=== PATIENT | male | born 2000 | race Caucasian/White ===

== ENCOUNTER 2020-03-09 17:01 | Emergency (ER) | payer BC, SELFPAY ==
[2020-03-09 17:18] VITALS: BP 128/77; PULSE 69; RESP 20; TEMP 36.6; O2SAT 100
--- NOTE | 2020-03-09 17:32 | ED.EAR ---
HPI - Ear Problem General Chief complaint: Ear Stated complaint: ear pain Time Seen by Provider: 03/09/20 17:32 Source: patient and RN notes reviewed Mode of arrival: ambulatory Limitations: no limitations History of Present Illness HPI Narrative: This is a 19 years old male presented office for evaluation of bilateral ear pain since yesterday. Deny associated symptoms such as runny nose, sore throat, cough, or congestion. No treatment prior to arrival. Admits to recent swimming. Related Data Allergies Allergy/AdvReac Type Severity Reaction Status Date / Time amoxicillin Allergy Unknown Verified 02/07/17 07:57 cefdinir Allergy Unknown Verified 02/07/17 07:58 Sulfa (Sulfonamide Allergy Unknown Verified 02/07/17 07:58 Antibiotics) sulfamethizole Allergy Unknown Verified 11/15/15 12:19 trimethoprim Allergy Unknown Verified 11/15/15 12:19 Review of Systems Review of Systems: Narrative: CONSTITUTIONAL: Denies fever, chills ENT: Denies rhinorrhea, congestion, sore throat. Reports both otalgia. CARDIOVASCULAR: Denies chest pain, palpitation, edema. RESPIRATORY: Denies dyspnea, wheezing, cough GASTROINTESTINAL: Denies abdominal pain, nausea, vomiting, diarrhea. SKIN: Denies rash MUSCULOSKELETAL: Denies acute back pain NEUROLOGIC: Denies lightheaded All other systems reviewed are negative, except as documented in HPI. PMFSH Social History Social History (Reviewed 07/09/19 @ 15:24 by Yolanda Hung [facility]) Smoking status: Never smoker Alcohol intake: never Gender identity (if verbalized by the patient): Male Comments At time of signature, I agree with nursing past medical, surgical, social and family history. There is no relevant family history pertinent to the presenting complaint. Exam Narrative: Exam Narrative: GENERAL: This is a well-nourished, well-developed patient, in no apparent distress. EYES: Sclera clear/white. Vision is grossly intact. EARS: External ears normal, bilateral tragal tenderness, both auditory canals appears erythema and edematous, TMs normal without perforation. Hearing grossly intact. NOSE: External nose normal with no obvious nasal discharge, nares without redness, no rhinorrhea. THROAT: Mucous membranes moist, posterior pharynx clear. NECK: Neck supple, non-tender without lymphadenopathy, masses or thyromegaly. CARDIOVASCULAR: Regular rate and rhythm without murmurs, gallops, or rubs. RESPIRATORY: Clear to auscultation. Breath sounds equal bilaterally. No wheezes, rales, or rhonchi. GASTROINTESTINAL: Abdomen soft, non-tender, nondistended. Bowel sounds are active. No hepato-splenomegaly, or palpable masses. No guarding. SKIN: warm, intact with no suspicious lesions or rash, good texture and turgor. NEURO: awake, alert, and oriented to person, place and time. There were no obvious focal neurologic abnormalities. Steady gait [place] Coma Scale Eye Opening: Spontaneous 4 Mohinder Coma Scale Motor: Obeys Commands 6 [place] Coma Scale Verbal: Oriented 5 Course Vital Signs Vital signs: Vital Signs Temperature 97.8 F 03/09/20 17:18 Pulse Rate 69 03/09/20 17:18 Respiratory Rate 03/09/20 17:18 Blood Pressure 128/77 03/09/20 17:18 Pulse Oximetry 100 03/09/20 17:18 Temperature 97.8 F 03/09/20 17:18 Pulse Rate 69 03/09/20 17:18 Respiratory Rate 03/09/20 17:18 Blood Pressure 128/77 03/09/20 17:18 Pulse Oximetry 100 03/09/20 17:18 Medical Decision Making MDM Narrative Medical decision making narrative: Discharge instructions reviewed with patient, as well as provided in writing per nursing staff. The instructions also include specific and strict return/GO TO THE ER as well as f/u information. All questions have been answered, and the patient deny any further questions with discharge and discharge plan. Differential Diagnosis Differential Diagnosis: otitis media, otitis externa, foreign body, sinusitis Vital Signs Vital Signs: Vital S
== END 2020-03-09 17:40 | disposition home or self-care (01) ==
PROVIDERS: Emergency Provider Nurse Practitioner; PCP Family Medicine
DX: H60.393 Other infective otitis externa, bilateral (principal)
CPT/HCPCS: 99213; G0463

== ENCOUNTER 2024-09-18 14:03 | Outpatient (CLI) | payer BC, SELFPAY ==
--- OUTSIDE RECORDS SUMMARY | 2024-09-18 14:08 | XMS_ITS | Referral Summary ---
Author Organization [facility] Address [address] [place] [address] Care Team Providers Care Bottle Blowing Machine Tender Name Role Phone Kevin Ribeiro MD Primary Care Provider Source Comments [facility],non-owned Affiliates and Associated Physician Practices is amultiple site organization consisting of ambulatory clinics and hospital sitesin [place] and [place]. This disclosure is being madepursuant to the Care Everywhere program and may not contain all information available regarding this patient. Last updated 18.[facility] Allergies Active Allergy Reactions Criticality Noted Date Comments Amoxicillin Urticaria High 12/24/2014 Cefdinir Urticaria High 12/24/2014 Sulfa Drugs Nausea and/or Vomiting High 12/24/2014 Medications * Be aware that medications may not be up to date on this document. Alwaysverify current medications with the patient. Medication Sig Dispensed Refills Start Date End Date Status multivitamin daily (THERAGRAN) tablet Take 1 Tab by mouth daily with food Active loratadine (CLARITIN) 10 MG tablet Take 10 mg by mouth once daily as needed for Runny Nose or Allergies Active FLUOCINOLONE ACETONIDE SCALP 0.01 %Indications:Psor iasis 1 Applicator by Apply externally route every evening Apply to affected areas every other day 120 mL 12/07/2016 Active Cholecalciferol (VITAMIN D) 2000 UNITS capsule Take 2,000 Units by mouth once daily Active methotrexate 2.5 MG tabletIndications :Psoriasis Take 2 Tabs by mouth every 7 days 8 Tab 2 03/19/2017 Active ketoconazole (NIZORAL) 2 % shampoo Use on scalp up to three times per week, allow contact with skin for up to 3 minutes to best results. 120 mL 5 08/15/2017 Active mupirocin (BACTROBAN) 2 % ointment Apply to nares and skin folds twice daily for 5 days. 22 g 08/15/2017 Active calcipotriene-bet amethasone dip (TACLONEX) 0.005-0.064 % suspension Apply to affected area once daily 120 g 08/15/2017 Active ustekinumab (STELARA) 45 MG/0.5ML prefilled syringeIndication s:Psoriasis,Inver se psoriasis Inject 0.5 ml subcutaneously every 12 weeks 1 syringe 3 10/04/2017 Active Active Problems Patient Care Coordination No te Formatting of this note migh t be different from the original. Standing Orders [facility] MD [phone] ph [phone] fax; valid 06/22/16-12/20/16 06/27/2016 Pt needs GI followup as recommended by Dr. Hdez; Sawyer may also benefit from Rheumatology evaluation (1 yr hx lower back pain, pos JIN) Alec prior auth approved 09/18/16-01/16/17. [facility] to fill; . Pt successfully enrolled in [employer] Savings Program; eligible to pay just $5 per dose with up to $20,000 maximum program benefit per calender year. Problem Noted Date Diagnosed Date Subcutaneous nodules 03/16/2017 Overview (05/28/2017): R axilla onset 2015 I&D X 12 Oct 2016 I&D February 2017 excision (Diedriech), path consistent with rupt EIC ([id number], U 2nd opinion performed). Wound dehiscence on 03/12 and started on Keflex. 03/16/17 wound cleansed and dressed; new onset R inguinal, consider hidradinitis vs.adenopathy 05/28/17 healed with scar Elevated JIN, transaminases and bilirubin 2015 Overview (08/08/2017): 02/26/16 CG GI: not evidence of IBD 07/27/16 CG Rheum: no evidence of CTD/PsA or seronegative spondyloarthropathy Consider MTX with biologics Wt 03/28/16 75.9 kg (167 lb 5.3 oz) 12/27/15 74.3 kg (163 lb 12.8 oz) 09/27/15 76.3 kg (168 lb 3.4 oz) 07/16/15 75.2 kg (165 lb 12.6 oz) Component 08/07/17 04/04/16 03/20/16 03/20/16 01/31/16 12/27/15 09/27/15 08/09/15 Bili Total 2.0 (H) 1.6 (H) 1.6 (H) 1.9 (H) 0.7 1.2 1.0 Alk Phos 86 86 88 96 (L) 111 106 AST 53 (H) 25 25 59 (H) 24 27 29 ALT 37 35 35 87 (H) 19 23 32 Bili Direct 0.3 (H) Bili Indirect 1.3 (H) JIN 1:80 speckled 1.4 Component 01/31/16 12/27/15 12/26/14 Iron 67 76 Transferrin 215 TIBC 269 278 % Saturation 25 27 CRP <=0.50 mg/dL <0.1 0.70 (H) 0.18 ESR <2 18 (H) 2 Vitamin D, 25-OH 20.46 (L) FH possible Crohn's (Dad flare age 24 Rx prednisone, Asachol, 6MP <2 yr) Plantar wart 09/27/2015 Overview (03/17/2017): onset late 2014 09/27/15 cryo, followed by topicals 12/27/15 cryo #2, Rx 70% nicol acid 03/27/16 resolved 07/03/16 new plantar lesion x 2 mo; cryo 11/27/16 improved, cryo; cont OTC treatment at home 12/29/16 resolved Acne 01/14/2015 Overview (03/17/2017): 01/14/15 complicated by perioral dermatitis; Benzaclin added (QAM) 02/17/15 50% improved, not clear 05/17/15 controlled on doxy 100 mg daily only 07/16/15 clear off doxy, and topicals 12/27/15 few lesions, central face only, off topicals 03/27/16 few lesions, off topicals 09/29/16 few lesions, using otc face wash 12/29/16 well controlled with mild change Psoriasis with perianal muco sitis, on long-term systemic tx (MTX, then Stelara) 01/13/2015 Overview (08/15/2017): onset age 8, scalp and folds, Rx excessive amounts of clobetasol shampoo and solution, desonide cream to face and TAC cr to perianal area; complicated by mucositis 01/13/15 1 yr hx perianal involvement; screening Strep neg; complicated by perioral dermatitis; Rx Taclonex soln + Loprox shampoo; perianal Cx: neg Strep, neg Staph 02/17/15 improved S/P QOD Taclonex (mucositis resolved); perioral involvement more psoriasiform 05/17/15 worsening using Taclonex solution (scalp) + fluocinolone oil under occlusion, and Taclonex in zinc oxide to body; start MTX at 15 mg QW (0.2 mg/kg/wk) 07/16/15 improved, but using pantiliners for drainage, S/P 8 wk MTX; tolerating 15 mg/wk; cont. X 4 more doses, then plan decrease 1 tab/wk every mo 08/11/15 mom prefers to hold dose at 15 mg/wk 09/27/15 improved, not clear S/P 14 wk MTX; increase to 20 mg/wk (0.26 mg/kg/wk) 12/27/15 new involvement at axillae, continued perianal serous drainage, almost 5# wt loss S/P 20 mg/wk X 12 and minimal Taclonex soln (mixed with zinc oxide); MTX PG 33.6 03/27/16 c/o back pain; change to MTX 20 mg SQ/wk, cont topicals; submit Rx ustekinumab 05/09/16 [employer] denied ustekinumab (<18 yr); cont. to monitor labs and appeal for LFT abnormalities or failure to respond 07/03/16 stable with faint new plaques on upper arms; MTX PG 47, consider increase to 25 mg QW; consider biologic when pt turns 16 09/29/16 improved on upper arms; active in roxana-anal area; STOP MTX after the last 2 doses; Hep Panel; Plan to start Ustekinumab; continue topicals 11/10/16 MTX D/C (last Otrexup injection 22.5 mg) 11/15/16 1st inj Stelara, 45 mg administered in office 12/13/16 day 28 inj Stelara administered at home per pt (no injection rxn) 12/29/16 improved, not clear; add MTX 5 mg QW 03/16/17 skin improved, not clear S/P Stelara #3 + MTX Qwk; back pain resolved, cont. Stelara, cont. MTX 5mg QW; consider Q2 mo injections, increase to 90 mg/dose or further eval, e.g. bx prn failure to clear) 05/28/17 worsening (worst at scalp/perianal) S/P Stelara #3 + MTX 5mg/wk, min topicals; inc Stelara #4, attempt increase to q2mo + MTX 5mg/wk, Rx keto shampoo, perianal bacterial cx MSSA only 07/24/17 controlled, not clear; Stelara #5 (S/P 2 mo interval); consider consult with Dr. Suarez for review of biologic options No personal hx freq Strep; FH infreq Strep pharyngitis (Mom and brother) Social History Tobacco Use Types Packs/Day Years Used Date Smoking Tobacco: Never Smokeless Tobacco: Never Alcohol Use Standard Drinks/Week Comments No 0 (1 standard drink = 0.6 oz pur e alcohol) Sex and Gender Information Value Date Recorded Sex Assigned at Not on file Gender Identity Not on file Sexual Orientation Not on file Last Filed Vital Signs Vital Sign Reading Time Taken Comments Blood Pressure 98/68 08/24/2016 2:16 PM DAM WORKER Pulse 78 02/17/2015 11:45 AM CDT Temperature - - Respiratory Rate 18 02/17/2015 11:45 AM CDT Oxygen Saturation - - Inhaled Oxygen Concentration - - Weight 78.3 kg (172 lb 9.9 oz) 08/15/2017 2:02 P M DAM WORKER Height 179.9 cm (5' 10.83 ) 08/15/2017 2:[address] Body Mass Index 24.19 08/15/2017 2:02 PM DAM WORKER Plan of Treatment Not on file Procedures Procedure Name Priority Date/Time Associated Diagnosis Comments HEPATITIS PANEL Routine 09/30/2016 12:07 PM DAM WORKER Psoriasis with perianal mucositis treated with MTX from Last 3 Months or Most Recently Relevant to Health Maintenance Results * HEPATITIS PANEL (09/30/2016 12:07 PM DAM WORKER) Hepatitis A Virus Antibody Total NON-REACTI VE NON-REACT DEE [facility] Comment: Test Performed at: [facility] [id number] [place] [address] YOANA SALAZAR DO,MPH Hepatitis B Virus Surface Antibody NON-REACTI VE NON-REACT DEE [facility] Hepatitis B Virus Surface Antigen NON-REACTI VE NON-REACT DEE [facility] Hepatitis B Core Virus Antibody Total NON-REACTI VE NON-REACT DEE [facility] Hepatitis C Antibody NON-REACTI VE NON-REACT DEE [facility] Signal to Cut-Off 0.02 <1.00 [facility] Comment: REPORT COMMENT: FASTING:NO BLOOD SPECIMEN / Unknown 09/30/2016 12:07 PM DAM WORKER 09/30/2016 12:08 PM DAM WORKER Yoselin Edwards MD LAB - CHEMISTRY OR DERABLES [facility] [id number] [place] [phone] from Last 3 Months or Most Recently Relevant to Health Maintenance Care Teams Bottle Blowing Machine Tender Relationship Specialty Start Date End Date Kevin Ribeiro MD [address] [facility] [place] [address] PCP - General Family Medicine 12/03/14
--- OUTSIDE RECORDS SUMMARY | 2024-09-18 14:08 | XMS_ITS | Clinical Summary ---
Author Organization [facility] [employer] [facility] Address [address] [place] [address] Care Team Providers Care Electronic Scanner Operator Name Role Phone Kevin Ribeiro MD Primary Care Provider [phone] Source Comments [facility],non-owned Affiliates and Associated Physician Practices is amultiple site organization consisting of ambulatory clinics and hospital sitesin [place], [place], [place] and [place]. This disclosure is being madepursuant to the Care Everywhere program and may not contain all information available regarding this patient. Last updated 18.[facility] Allergies Active Allergy Reactions Criticality Noted Date [...] from the original. Standing Orders [facility] [place] [phone] ph [phone] fax; valid 06/22/16-12/20/16 06/27/2016 Pt needs GI followup as recommended by Dr. Hdez; [place] may also benefit from Rheumatology evaluation (1 yr hx lower back pain, pos JIN) Alec prior auth approved 09/18/16-01/16/17. [facility] to fill; . Pt successfully enrolled in [employer] Savings Program; eligible to pay just $5 per dose with up to $20,000 maximum program benefit per calender year. Problem Noted Date Diagnosed Date Subcutaneous nodules 03/16/2017 Overview (05/28/2017): R axilla onset 2015 I&D X 12 Oct 2016 I&D February 2017 excision (Diedriech), path consistent with rupt EIC ([id number], U 2nd opinion performed). Wound dehiscence on [...] FH infreq Strep pharyngitis (Mom and brother) Family History Medical History Relation Name Comments Eczema Father mole Psoriasis Father mole Cancer - Skin, Melanoma Paternal Grandfather Heart Disease Paternal Grandmother Relation Name Status Comments Brother vitilago Alive Father mole Alive Mother mole Alive Paternal Grandfather Paternal Grandmother Social History Tobacco Use Types Packs/Day Years [...] Comments Blood Pressure 98/68 08/24/2016 2:16 PM DEPARTMENT SALES MANAGER Pulse 78 02/17/2015 11:45 AM CDT Temperature - - Respiratory Rate 18 02/17/2015 11:45 AM CDT Oxygen Saturation - - Inhaled Oxygen Concentration - - Weight 78.3 kg (172 lb 9.9 oz) 08/15/2017 2:02 P M DEPARTMENT SALES MANAGER Height 179.9 cm (5' 10.83 ) 08/15/2017 2:02 PM Nicole FRITZ Body Mass Index 24.19 08/15/2017 2:02 PM DEPARTMENT SALES MANAGER Plan of Treatment Health Maintenance Due Date Last Done Comments HIV SCREENING 2013 HPV VACCINE (1 - Male 3-dose series) 2013 DTAP/TDAP/TD VACCINES (1 - Tdap) 2017 HEPATITIS B VACCINE (1 of 3 - 19+ 3-dose series) 2017 COVID-19 VACCINE (1 - 2023-2 5 season) 2024 INFLUENZA VACCINE (#1) 2024 DEPRESSION SCREENING 08/13/2024 ZOSTER VACCINE (1 of 2) 2048 HEPATITIS C SCREENING Completed 09/30/2016 HIB VACCINE Aged Out No longer eligi ble based on patient's age to complete this topic MENINGOCOCCAL (Group B) VACCINE Aged Out No longer eligible based on patient's age to complete this topic MENINGOCOCCAL VACCINE Aged Out No mehrdad vipul eligible based on patient's age to complete this topic PNEUMOCOCCAL VACCINE Aged Out No long er eligible based on patient's age to complete this topic Procedures Procedure Name Priority Date/Time Associated Diagnosis Comments HEPATITIS PANEL Routine 09/30/2016 12:07 PM DEPARTMENT SALES MANAGER Psoriasis with perianal mucositis treated with MTX from Last 3 Months or Most Recently Relevant to Health Maintenance Results * HEPATITIS PANEL (09/30/2016 12:07 PM DEPARTMENT SALES MANAGER) Hepatitis A Virus Antibody Total NON-REACTI VE NON-REACT DEE [facility] Comment: Test Performed at: [facility] [address] [place] [address] YOANA SALAZAR DO,MPH Hepatitis B Virus Surface Antibody NON-REACTI VE NON-REACT DEE [facility] Hepatitis B Virus Surface Antigen NON-REACTI VE NON-REACT DEE [facility] Hepatitis B Core Virus Antibody Total NON-REACTI VE NON-REACT DEE [facility] Hepatitis C Antibody NON-REACTI VE NON-REACT DEE [facility] Signal to Cut-Off 0.02 <1.00 [facility] Comment: REPORT COMMENT: FASTING:NO BLOOD SPECIMEN / Unknown 09/30/2016 12:07 PM DEPARTMENT SALES MANAGER 09/30/2016 12:08 PM DEPARTMENT SALES MANAGER Yoselin Edwards MD LAB - CHEMISTRY OR DERABLES [facility] [id number] [place] [address] from Last 3 Months or Most Recently Relevant to Health Maintenance Care Teams Electronic Scanner Operator Relationship Specialty Start Date End Date Kevin Ribeiro MD [address] [place] [address] PCP - General Family Medicine 12/03/14
--- OUTSIDE RECORDS SUMMARY | 2024-09-18 14:08 | XMS_ITS | Patient Health Summary ---
Author Organization [facility] Address [address] [place] [address] Care Team Providers Care Marine Machinist Name Role Phone Kevin Ribeiro MD Primary Care Provider [phone] Note from [facility],non-owned Affiliates and Associated Physician Practices is amultiple site organization consisting of ambulatory clinics and hospital sitesin [place], [place], [place] and [place]. This disclosure is being madepursuant to the Care Everywhere program and may not contain all information available regarding this patient. Last updated 18.[facility] Allergies * Amoxicillin(Urticaria) -High Criticality * Cefdinir(Urticaria) -High Criticality * Sulfa Drugs(Nausea and/or Vomiting) -High Criticality Medications * Be aware that medications may not be up to date on this document. Alwaysverify current medications with the patient. * multivitamin daily (THERAGRAN) tablet Take 1 Tab by mouth daily with food * loratadine (CLARITIN) 10 MG tablet Take 10 mg by mouth once daily as needed for Runny Nose or Allergies * FLUOCINOLONE ACETONIDE SCALP 0.01 %(Started 12/07/2016) 1 Applicator by Apply externally route every evening Apply to affected areas every other day * Cholecalciferol (VITAMIN D) 2000 UNITS capsule Take 2,000 Units by mouth once daily * methotrexate 2.5 MG tablet(Started 03/19/2017) Take 2 Tabs by mouth every 7 days 2 refills remaining * ketoconazole (NIZORAL) 2 % shampoo(Started 08/15/2017) Use on scalp up to three times per week, allow contact with skin for up to 3 minutes to best results. 5 refills remaining * mupirocin (BACTROBAN) 2 % ointment(Started 08/15/2017) Apply to nares and skin folds twice daily for 5 days. * calcipotriene-betamethasone dip (TACLONEX) 0.005-0.064 % suspension(Started 08/15/2017) Apply to affected area once daily * ustekinumab (STELARA) 45 MG/0.5ML prefilled syringe(Started 10/04/2017) Inject 0.5 ml subcutaneously every 12 weeks 3 refills remaining Active Problems Problem Noted Date Diagnosed Date Subcutaneous nodules 03/16/2017 Elevated JIN, transaminases and bilirubin 2015 Plantar wart 09/27/2015 Acne 01/14/2015 Psoriasis with perianal muco sitis, on long-term systemic tx (MTX, then Stelara) 01/13/2015 Social History Tobacco Use Types Packs/Day Years [...] Comments Blood Pressure 98/68 08/24/2016 2:16 PM DELINQUENCY COUNSELOR Pulse 78 02/17/2015 11:45 AM CDT Temperature - - Respiratory Rate 18 02/17/2015 11:45 AM CDT Oxygen Saturation - - Inhaled Oxygen Concentration - - Weight 78.3 kg (172 lb 9.9 oz) 08/15/2017 2:02 P M DELINQUENCY COUNSELOR Height 179.9 cm (5' 10.83 ) 08/15/2017 2:[address] Body Mass Index 24.19 08/15/2017 2:02 PM DELINQUENCY COUNSELOR Procedures * CBC W AUTO DIFFERENTIAL(Performed 08/07/2017) * COMPREHENSIVE METABOLIC PANEL(Performed 08/07/2017) * CULTURE STAPH AUREUS+STREP A(Performed 05/28/2017) Performed for Psoriasis with perianal mucositis, on long-term systemic tx (MTX, then Stelara) * JIN BLOOD SCREEN W/REFLEX TITER(Performed 05/17/2017) * CBC W AUTO DIFFERENTIAL(Performed 05/17/2017) * HISTONE ANTIBODY(Performed 05/17/2017) * COMPREHENSIVE METABOLIC PANEL(Performed 05/17/2017) * DERMATOPATHOLOGY(Performed 03/23/2017) * CBC W AUTO DIFFERENTIAL(Performed 10/16/2016) * COMPREHENSIVE METABOLIC PANEL(Performed 10/16/2016) * HEPATITIS PANEL(Performed 09/30/2016) Performed for Psoriasis with perianal mucositis treated with MTX * CULTURE STAPH AUREUS+STREP A(Performed 09/29/2016) Performed for Psoriasis with perianal mucositis treated with MTX * VITAMIN D 25-HYDROXY(Performed 09/18/2016) * CBC W AUTO DIFFERENTIAL(Performed 09/18/2016) * COMPREHENSIVE METABOLIC PANEL(Performed 09/18/2016) * CBC W AUTO DIFFERENTIAL(Performed 08/21/2016) * COMPREHENSIVE METABOLIC PANEL(Performed 08/21/2016) * URINE MICROSCOPIC ONLY REFLEX TO CULTURE(Performed 07/27/2016) Performed for JIN positive, Psoriasis with perianal mucositis treated with MTX * URINALYSIS REFLEX MICROSCOPIC REFLEX CULTURE(Performed 07/27/2016) Performed for JIN positive, Psoriasis with perianal mucositis treated with MTX * JIN BLOOD TITER(Performed 07/27/2016) Performed for JIN positive * CYCLIC CITRUL PEPTIDE ANTIBODY IGG/IGA (CCP)(Performed 07/27/2016) Performed for JIN positive, Psoriasis with perianal mucositis treated with MTX * HLA TYPING B27(Performed 07/27/2016) Performed for JIN positive, Psoriasis with perianal mucositis treated with MTX * ERYTHROCYTE SEDIMENTATION RATE(Performed 07/27/2016) Performed for JIN positive, Psoriasis with perianal mucositis treated with MTX * C-REACTIVE PROTEIN(Performed 07/27/2016) Performed for JIN positive, Psoriasis with perianal mucositis treated with MTX * COMPREHENSIVE METABOLIC PANEL(Performed 07/27/2016) Performed for JIN positive, Psoriasis with perianal mucositis treated with MTX * CBC W AUTO DIFFERENTIAL(Performed 07/27/2016) Performed for JIN positive, Psoriasis with perianal mucositis treated with MTX * HISTONE ANTIBODY(Performed 07/27/2016) Performed for JIN positive * CHROMATIN ANTIBODY(Performed 07/27/2016) Performed for JIN positive * DIRECTOR OF COLLECTIONS AND ARCHIVES ANTIBODY(Performed 07/27/2016) Performed for JIN positive * SCLERODERMA 70 (SCL) ANTIBODY(Performed 07/27/2016) Performed for JIN positive * SS-B (SJOGREN'S) ANTIBODY(Performed 07/27/2016) Performed for JIN positive * SS-A (SJOGREN'S) ANTIBODY(Performed 07/27/2016) Performed for JIN positive * RICCI (SM) ANTIBODY SATHISH(Performed 07/27/2016) Performed for JIN positive * DNA ANTIBODY DOUBLE STRANDED(Performed 07/27/2016) Performed for JIN positive * JIN BLOOD SCREEN W/REFLEX TITER(Performed 07/27/2016) Performed for JIN positive * LAB RESULTS ORDER(Performed 07/04/2016) * LAB RESULTS ORDER(Performed 07/03/2016) * JIN BLOOD TITER(Performed 07/03/2016) Performed for Elevated JIN, transaminases and bilirubin * MTX POLYGLUTAMATE(Performed 07/03/2016) Performed for Psoriasis with perianal mucositis treated with MTX * JIN BLOOD SCREEN W/REFLEX TITER(Performed 07/03/2016) Performed for Elevated JIN, transaminases and bilirubin * ERYTHROCYTE SEDIMENTATION RATE(Performed 07/03/2016) Performed for Psoriasis with perianal mucositis treated with MTX, Elevated JIN, transaminases and bilirubin * C-REACTIVE PROTEIN(Performed 07/03/2016) Performed for Psoriasis with perianal mucositis treated with MTX, Elevated JIN, transaminases and bilirubin * CBC W AUTO DIFFERENTIAL(Performed 07/03/2016) Performed for Psoriasis with perianal mucositis treated with MTX * VITAMIN D 25-HYDROXY(Performed 07/03/2016) Performed for Psoriasis with perianal mucositis treated with MTX * COMPREHENSIVE METABOLIC PANEL(Performed 07/03/2016) Performed for Psoriasis with perianal mucositis treated with MTX, Elevated JIN, transaminases and bilirubin * CBC W AUTO DIFFERENTIAL(Performed 06/26/2016) * COMPREHENSIVE METABOLIC PANEL(Performed 06/26/2016) * LAB RESULTS ORDER(Performed 05/16/2016) * QUANTIFERON TB-GOLD(Performed 04/04/2016) * JIN BLOOD TITER(Performed 04/04/2016) * JIN BLOOD SCREEN W/REFLEX TITER(Performed 04/04/2016) * LAB RESULTS ORDER(Performed 03/27/2016) * C-REACTIVE PROTEIN(Performed 03/20/2016) * CBC W AUTO DIFFERENTIAL(Performed 03/20/2016) * ERYTHROCYTE SEDIMENTATION RATE(Performed 03/20/2016) * HEPATIC FUNCTION PANEL(Performed 03/20/2016) * COMPREHENSIVE METABOLIC PANEL(Performed 03/20/2016) * C-REACTIVE PROTEIN(Performed 01/31/2016) * CBC W AUTO DIFFERENTIAL(Performed 01/31/2016) * ERYTHROCYTE SEDIMENTATION RATE(Performed 01/31/2016) * COMPREHENSIVE METABOLIC PANEL(Performed 01/31/2016) * IRON + TIBC PANEL(Performed 01/31/2016) * COMPREHENSIVE METABOLIC PANEL(Performed 12/27/2015) Performed for Plantar wart * CBC W AUTO DIFFERENTIAL(Performed 12/27/2015) Performed for Plantar wart * C-REACTIVE PROTEIN(Performed 12/27/2015) Performed for Plantar wart * IRON + TRANSFERRIN PANEL(Performed 12/27/2015) Performed for Plantar wart * ERYTHROCYTE SEDIMENTATION RATE(Performed 12/27/2015) Performed for Plantar wart * MTX POLYGLUTAMATE(Performed 12/27/2015) Performed for Plantar wart, Psoriasis with perianal mucositis treated with MTX, Other acne * VITAMIN D 25-HYDROXY(Performed 12/27/2015) Performed for Plantar wart, Psoriasis with perianal mucositis treated with MTX, Other acne * CULTURE FUNGUS SKIN HAIR NAIL+FUNGUS SMEAR(Performed 09/27/2015) Performed for Psoriasis with perianal mucositis treated with MTX * CBC W AUTO DIFFERENTIAL(Performed 09/27/2015) * COMPREHENSIVE METABOLIC PANEL(Performed 09/27/2015) * CBC W AUTO DIFFERENTIAL(Performed 08/09/2015) * COMPREHENSIVE METABOLIC PANEL(Performed 08/09/2015) * CBC W AUTO DIFFERENTIAL(Performed 07/12/2015) * COMPREHENSIVE METABOLIC PANEL(Performed 07/12/2015) * CBC W AUTO DIFFERENTIAL(Performed 06/14/2015) * COMPREHENSIVE METABOLIC PANEL(Performed 06/14/2015) * CULTURE STAPH AUREUS+STREP A(Performed 01/13/2015) Performed for Psoriasis * ERYTHROCYTE SEDIMENTATION RATE(Performed 12/26/2014) Performed for Perianal erythema * IRON + TIBC PANEL(Performed 12/26/2014) Performed for Perianal erythema * C-REACTIVE PROTEIN(Performed 12/26/2014) Performed for Perianal erythema * COMPREHENSIVE METABOLIC PANEL(Performed 12/26/2014) Performed for Perianal erythema * CBC W AUTO DIFFERENTIAL(Performed 12/26/2014) Performed for Perianal erythema Results * CBC W AUTO DIFFERENTIAL (08/07/2017 9:00 AM DELINQUENCY COUNSELOR) Only the most recent of16 resultswithin the time period is included. White Blood Cell Count 6.2 4.5 - 13.0 Thousand/u L [facility] RBC 5.30 4.10 - 5.70 Million/uL [facility] Hemoglobin 16.0 12.0 - 16.9 g/dL [facility] Hematocrit 47.1 36.0 - 49.0 % [facility] MCV 88.9 78.0 - 98.0 fL [facility] MCH 30.2 25.0 - 35.0 pg [facility] MCHC 34.0 31.0 - 36.0 g/dL [facility] RDW 11.8 11.0 - 15.0 % [facility] Platelet Count 258 140 - 400 Thousand/u L [facility] MPV 10.1 7.5 - 12.5 fL [facility] Neutrophil Absolute 2908 1800 - 8000 cells/uL [facility] Lymphocytes Absolute 2387 1200 - 5200 cells/uL [facility] Absolute Monocytes 744 200 - 900 cells/uL [facility] Eosinophils Absolute 112 15 - 500 cells/uL [facility] Basophils Absolute 50 0 - 200 cells/uL [facility] Granulocytes % 46.9 % [facility] Lymphocytes % 38.5 % [facility] Monocytes % 12.0 % [facility] Eosinophils % 1.8 % [facility] Basophils % 0.8 % [facility] Comment: REPORT COMMENT: FASTING:NO Test Performed at: [facility] [address] [place] [address] YOANA SALAZAR DO,MPH 08/07/2017 9:00 AM DELINQUENCY COUNSELOR 08/07/2017 9:01 AM DELINQUENCY COUNSELOR Yoselin Edwards MD LAB - HEMATOLOGY O RDERABLES [facility] [address] [place] [id number] * (ABNORMAL) COMPREHENSIVE METABOLIC PANEL (08/07/2017 9:00 AM DELINQUENCY COUNSELOR) Only the most recent of16 resultswithin the time period is included. Glucose 128(H) 65 - 99 mg/dL [facility] Comment: Fasting reference interval For someone without known diabetes, a glucose value >125 mg/dL indicates that they may have diabetes and this should be confirmed with a follow-up test. BUN 17 7 - 20 mg/dL [facility] Creatinine 1.12 0.60 - 1.26 mg/dL [facility] eGFR by MDRD 95 > OR = 60 mL/min/1. 73m2 [facility] eGFR by MDRD 111 > OR = 60 mL/min/1. 73m2 [facility] BUN/Creatinine Ratio NOT APPLICABLE 6 - 22 (calc) [facility] Sodium 141 135 - 146 mmol/L [facility] Potassium 4.0 3.8 - 5.1 mmol/L [facility] Chloride 101 98 - 110 mmol/L [facility] CO2 29 20 - 31 mmol/L [facility] Calcium 9.9 8.9 - 10.4 mg/dL [facility] Protein Total 8.0 6.3 - 8.2 g/dL [facility] Albumin 4.7 3.6 - 5.1 g/dL [facility] Globulin Total 3.3 2.1 - 3.5 g/dL (calc) [facility] Albumin/Globuli n Ratio 1.4 1.0 - 2.5 (calc) [facility] Bilirubin Total 2.0(H) 0.2 - 1.1 mg/dL [facility] Alkaline Phosphatase 73 48 - 230 U/L [facility] AST 53(H) 12 - 32 U/L [facility] ALT 37 8 - 46 U/L [facility] Comment: Test Performed at: [facility] [address] [place] [address] YOANA SALAZAR DO,MPH 08/07/2017 9:00 AM DELINQUENCY COUNSELOR 08/07/2017 9:01 AM DELINQUENCY COUNSELOR Yoselin Edwards MD LAB - CHEMISTRY OR DERABLES Performing Organization Address City/State/[facility] Co ar Phone Number [facility] [address] [place] [address] * (ABNORMAL) CULTURE STAPH AUREUS+STREP A (05/28/2017 3:49 PM CDT) Only the most recent of3 resultswithin the time period is included. Culture Negative for beta-hemolytic Streptococcus Group A ELSY 05/31/2017 4:49 AM CDT [facility] MICROBIOLOGY Culture Growth of Staphylococcus aureus(A) ELSY 05/31/2017 4:49 AM CDT [facility] MICROBIOLOGY Microbiology ENTIRE PERIRECTAL REGION / Unknown Collection / Unknown 05/28/2017 3:49 PM CDT 05/28/2017 3:49 PM CDT Narrative Organism Antibiotic Method Susceptibility Staphylococcus aureus Ciprofloxacin ELSY <=0.5 ug/mL: Susceptible Staphylococcus aureus Clindamycin ELSY 0.25 ug/mL: Susceptible Staphylococcus aureus Doxycycline ELSY <=0.5 ug/mL: Susceptible Staphylococcus aureus Erythromycin ELSY >=8 ug/mL: Resistant Staphylococcus aureus Gentamicin ELSY <=0.5 ug/mL: Susceptible Staphylococcus aureus Inducible Clindamy senait Resistance ELSY NEG ug/mL: Neg Staphylococcus aureus Levofloxacin ELSY <=0.12 ug/mL: Susceptible Staphylococcus aureus Linezolid ELSY 2 ug/mL: Susceptible Staphylococcus aureus Oxacillin ELSY <=0.25 ug/mL: Susceptible Staphylococcus aureus Tetracycline ELSY <=1 ug/mL: Susceptible Staphylococcus aureus Trimethoprim-sulfa methoxa zole ELSY <=10 ug/mL: Susceptible Staphylococcus aureus Vancomycin ELSY <=0.5 ug/mL: Susceptible Comment:Methicillin-suscepti ble Staphylococci are susceptible to oxacillin, nafcillin, cloxacillin,dicloxacillin, beta lactam/betalactamase inhibitor combinations, cephalosporins including cefazolin and carbapenems. Omid Perez MD LAB - MICROBIOLOGY O RDERABLES [facility] MICROBIOLOGY [address] [place], [place] [address] [phone] * JIN BLOOD SCREEN W/REFLEX TITER (05/17/2017 12:51 PM CDT) Only the most recent of4 resultswithin the time period is included. Pathologist [facility] JIN Screen NEGATIVE NEGATIVE [facility] Comment: JIN IFA is a first line screen for detecting the presence of up to approximately 150 autoantibodies in various autoimmune diseases. A negative JIN IFA result suggests JIN-associated autoimmune diseases are not present at this time. Visit Physician FAQs for interpretation of all antibodies in the [place], prevalence, and association with diseases at http://education.Léa et Léo/ faq/CTZ583 Test Performed at: [facility] [address] [place] [address] YOANA SALAZAR DO,MPH 05/17/2017 12:5 1 PM CDT 05/17/2017 12:52 PM CDT Yoselin Edwards MD LAB - CHEMISTRY OR DERABLES [facility] [address] [place] [address] * (ABNORMAL) HISTONE ANTIBODY (05/17/2017 12:51 PM CDT) Only the most recent of2 resultswithin the time period is included. Pathologist [facility] Histone Antibody 1.4(H) U [facility] Comment: Reference Ranges for Histone Antibodies: <1.0 Negative 1.0-1.5 Weak Positive 1.6-2.5 Moderate Positive >2.5 Strong Positive Test Performed at: [facility] [address] [place] [address] REYES VALENCIA MD PHD 05/17/2017 12:5 1 PM CDT 05/17/2017 12:52 PM CDT Yoselin Edwards MD LAB - CHEMISTRY OR DERABLES [facility] [address] [place] [address] * PATHOLOGY TISSUE FOR DERMATOLOGY (03/23/2017 12:00 AM CDT) Result CASE: [id number] PATIENT: ADDI SAHU PATHOLOGIC DIAGNOSIS: Left axilla: EPIDERMOID CYST WITH EVIDENCE OF RUPTURE (see microscopic description and comment) CLINICAL DATA: Materials from: [facility] [address] [place] [address] [place] [address] Received from [facility], at the request of Dr. Yoselin Edwards, are 2 slide(s) labeled [id number] and 2 blocks labeled [id number]. Changes consistent with benign acute abscess (see comment). -Comment: The histologic differential diagnosis includes hidradenitis suppurativa and ruptured epidermal inclusion cyst. DDx: Epidermoid, doubt hidradenitis. All slides returned. Any additional sections, special stains, or immunohistochemical stains performed by our laboratory will be kept here on file. MICROSCOPIC DESCRIPTION: Within the dermis, there is a space lined by epithelium that resembles normal epidermis and the infundibular portion of the hair follicle. Surrounding this is an infiltrate with neutrophils, histiocytes, and multinucleated giant cells. Some of the histiocytes contain material consistent with keratin. COMMENT: Although a sinus tract with surrounding granulomatous inflammation of a lesion of hidradenitis suppurativa cannot be entirely excluded, the findings are favored to represent a ruptured epidermoid cyst. Electronically signed out by Kristan Lanier M.D., PhD. 03/23/2017 1:14:34PM [facility] DERMATOLOGY LAB Comment: Performed at: Dermatopathology Laboratory [facility] - Department of Dermatology [address] [place] [address], 5th [place] [address] Phone number: [phone] FAX: [phone] 03/23/2017 03/23/2017 Yoselin Edwards MD LAB - PATHOLOGY/CY TOLOGY ORDERABLES U DERMATOLOGY LAB [facility] [facility]. [address]th [place] [address], [facility] [phone] * HEPATITIS PANEL (09/30/2016 12:07 PM DELINQUENCY COUNSELOR) Hepatitis A Virus Antibody Total NON-REACTI VE NON-REACT DEE [facility] Comment: Test Performed at: [facility] [address] [place] [address] YOANA SALAZAR DO,MPH Hepatitis B Virus Surface Antibody NON-REACTI VE NON-REACT DEE [facility] Hepatitis B Virus Surface Antigen NON-REACTI VE NON-REACT DEE [facility] Hepatitis B Core Virus Antibody Total NON-REACTI VE NON-REACT DEE [facility] Hepatitis C Antibody NON-REACTI VE NON-REACT DEE [facility] Signal to Cut-Off 0.02 <1.00 [facility] Comment: REPORT COMMENT: FASTING:NO BLOOD SPECIMEN / Unknown 09/30/2016 12:07 PM DELINQUENCY COUNSELOR 09/30/2016 12:08 PM DELINQUENCY COUNSELOR Yoselin Edwards MD LAB - CHEMISTRY OR DERABLES Performing Organization Address City/[facility] Co de Phone Number [facility] [address] [place] [address] * (ABNORMAL) VITAMIN D 25-HYDROXY (09/18/2016 3:53 PM DELINQUENCY COUNSELOR) Only the most recent of3 resultswithin the time period is included. Vitamin D, 25 Hydroxy 28(L) 30 - 100 ng/mL [facility] Comment: Vitamin D Status 25-OH Vitamin D: Deficiency: <20 ng/mL Insufficiency: 20 - 29 ng/mL Optimal: > or = 30 ng/mL For 25-OH Vitamin D testing on patients on D2-supplementation and patients for whom quantitation of D2 and D3 fractions is required, the QuestAssureD(TM) 25-OH VIT D, (D2,D3), LC/MS/MS is recommended: order code 76370 (patients >2yrs). For more information on this test, go to: http://education.Synacor/faq/YYP910 (This link is being provided for informational/educational purposes only.) REPORT COMMENT: FASTING:NO Test Performed at: [facility] [address] [place] [address] YOANA SALAZAR DO,MPH 09/18/2016 3:53 PM DELINQUENCY COUNSELOR 09/18/2016 3:54 PM DELINQUENCY COUNSELOR Yoselin Edwards MD LAB - CHEMISTRY OR DERABLES Performing Organization Address City/[facility]/ZIP Co de Phone Number [facility] [address] [place] [address] * URINALYSIS MICROSCOPIC ONLY W/REFLEX CULTURE (07/27/2016 2:27 PM DELINQUENCY COUNSELOR) RBC UA 0-2 0-2, 2-5 # /hpf 07/27/2016 8:40 PM DELINQUENCY COUNSELOR [facility] WBC UA 0-2 0-2, 2-5 # /hpf 07/27/2016 8:40 PM [facility] Bacteria UA Trace None Seen, Trace 07/27/2016 8:40 PM [facility] Epithelial Cell UA 0-2 0-2, 2-5 # /hpf 07/27/2016 8:40 PM [facility] Mucus UA 1+ 07/27/2016 8:40 PM [facility] Urine URINE SPECIMEN OBTAINED BY CLEAN CATCH PROCEDURE / Unknown Collection / Unknown 07/27/2016 2:27 PM DELINQUENCY COUNSELOR 07/27/2016 3:17 PM DELINQUENCY COUNSELOR Tushar Santacruz MD LAB - URINALYSIS ORD ERABLES [facility] [address] [place] [address] * URINALYSIS ROUTINE W/REFLEX TO CULTURE (07/27/2016 2:27 PM DELINQUENCY COUNSELOR) Color UA Yellow Straw, Yellow, Dark Yellow 07/27/2016 6:55 PM DELINQUENCY COUNSELOR [facility] Clarity UA Clear 07/27/2016 6:55 PM [facility] Specific [place] UA 1.020 1.005 - 1.030 07/27/2016 6:55 PM [facility] pH UA 7.0 5.0 - 8.0 pH 07/27/2016 6:55 PM [facility] Protein UA Negative Negative 07/27/2016 6:55 PM [facility] Blood UA Negative Negative 07/27/2016 6:55 PM [facility] Leukocyte UA Negative Negative 07/27/2016 6:55 PM [facility] Nitrite UA Negative Negative 07/27/2016 6:55 PM [facility] Glucose UA Negative Negative 07/27/2016 6:55 PM [facility] Ketone UA Negative Negative 07/27/2016 6:55 PM [facility] Bilirubin UA Negative Negative 07/27/2016 6:55 PM [facility] Urobilinogen UA 0.2 0.1 - 1.0 EU/dL 07/27/2016 6:55 PM [facility] Reflex Status Culture not indicated 07/27/2016 6:55 PM [facility] Urine URINE SPECIMEN OBTAINED BY CLEAN CATCH PROCEDURE / Unknown Collection / Unknown 07/27/2016 2:27 PM DELINQUENCY COUNSELOR 07/27/2016 3:17 PM DELINQUENCY COUNSELOR Tushar Santacruz MD LAB - URINALYSIS ORD ERABLES Performing Organization Address [facility]/State/[facility] Co de Phone Number [facility] [address] [place] [address] * CHROMATIN ANTIBODY (07/27/2016 2:26 PM DELINQUENCY COUNSELOR) Antichromatin Antibodies 0.3 0.0 - 0.9 AI 07/28/2016 12:12 PM DELINQUENCY COUNSELOR [facility] ([facility]) Blood BLOOD SPECIMEN / Unknown Lab Venipuncture / Unknown 07/27/2016 2:26 PM DELINQUENCY COUNSELOR 07/27/2016 3:08 PM DELINQUENCY COUNSELOR Narrative [facility] ([facility]) - 07/28/2016 12:12 PM DELINQUENCY COUNSELOR Performed at: [facility] [id number] Therapy Director: Talat Rendon PhD, Phone: [phone] Tushar Santacruz MD LAB - SEROLOGY ORDER EVELINA Performing Organization Address City/[facility]/ZIP Co de Phone Number [facility] ([facility]) [address] [place] [address] * CYCLIC CITRUL PEPTIDE ANTIBODY IGG/IGA ([facility]P) (07/27/2016 2:26 PM DELINQUENCY COUNSELOR) CCP Antibodies IgG/IgA 3 0 - 19 units 07/28/2016 11:06 PM DELINQUENCY COUNSELOR [facility] ([facility]) Comment: Negative <20 Weak positive 20 - 39 Moderate positive 40 - 59 Strong positive >59 Blood BLOOD SPECIMEN / Unknown Lab Venipuncture / Unknown 07/27/2016 2:26 PM DELINQUENCY COUNSELOR 07/27/2016 3:08 PM DELINQUENCY COUNSELOR Narrative [facility] ([facility]) - 07/28/2016 11:06 PM DELINQUENCY COUNSELOR Performed at: 01 - [facility] [id number] Therapy Director: Yoana Hung MD, Phone: [phone] Tushar Santacruz MD LAB - SEROLOGY ORDER EVELINA Performing Organization Address City/[facility]/ZIP Co de Phone Number [facility]) [address] [place] [address] * SM ANTIBODY SATHISH (07/27/2016 2:26 PM DELINQUENCY COUNSELOR) Pathologist [facility] (SATHISH) Antibody <0.2 0.0 - 0.9 AI 07/28/2016 12:12 PM DELINQUENCY COUNSELOR [facility] ([facility]) Blood BLOOD SPECIMEN / Unknown Lab Venipuncture / Unknown 07/27/2016 2:26 PM DELINQUENCY COUNSELOR 07/27/2016 3:08 PM DELINQUENCY COUNSELOR Narrative [facility] ([facility]) - 07/28/2016 12:12 PM DELINQUENCY COUNSELOR Performed at: 01 - [facility] [id number] Therapy Director: Talat Rendon PhD, Phone: [phone] Tushar Santacruz MD LAB - CHEMISTRY ROMELIA MARINELLI Performing Organization Address City/[facility]/ZIP Co de Phone Number [facility]) [address] [place] [address] * DIRECTOR OF COLLECTIONS AND ARCHIVES ANTIBODY (07/27/2016 2:26 PM DELINQUENCY COUNSELOR) [facility] DIRECTOR OF COLLECTIONS AND ARCHIVES Antibody <0.2 0.0 - 0.9 AI 07/28/2016 12:12 PM DELINQUENCY COUNSELOR [facility] ([facility]) Blood BLOOD SPECIMEN / Unknown Lab Venipuncture / Unknown 07/27/2016 2:26 PM DELINQUENCY COUNSELOR 07/27/2016 3:08 PM DELINQUENCY COUNSELOR Narrative [facility] ([facility]) - 07/28/2016 12:12 PM DELINQUENCY COUNSELOR Performed at: [facility] - [facility] [address] [place], [place] [id number] Therapy Director: Talat Rendon PhD, Phone: [phone] Tushar Santacruz MD LAB - CHEMISTRY ROMELIA MARINELLI Performing Organization Address City/[facility]/ZIP Co de Phone Number [facility] ([facility]) [address] [place] [address] * C-REACTIVE PROTEIN (07/27/2016 2:26 PM DELINQUENCY COUNSELOR) Only the most recent of6 resultswithin the time period is included. [facility] C-Reactive Protein <0.20 <=0.50 mg/dL 07/27/2016 4:02 PM DELINQUENCY COUNSELOR [facility] Blood BLOOD SPECIMEN / Unknown Lab Venipuncture / Unknown 07/27/2016 2:26 PM DELINQUENCY COUNSELOR 07/27/2016 3:08 PM DELINQUENCY COUNSELOR Tushar Santacruz MD LAB - CHEMISTRY ROMELIA MARINELLI Performing Organization Address City/[facility]/ZIP Co de Phone Number [facility] [address] [place] [id number] * JIN BLOOD TITER (07/27/2016 2:26 PM DELINQUENCY COUNSELOR) Only the most recent of3 resultswithin the time period is included. [facility] Speckled 1:40 Negative, <1:40, 1:40, 1:80 07/28/2016 3:03 PM DELINQUENCY COUNSELOR [facility] Blood BLOOD SPECIMEN / Unknown Lab Venipuncture / Unknown 07/27/2016 2:26 PM DELINQUENCY COUNSELOR 07/27/2016 3:08 PM DELINQUENCY COUNSELOR Tushar Santacruz MD LAB - CHEMISTRY ROMELIA MARINELLI [facility] [address] [place] [address] * HLA TYPING B27 (07/27/2016 2:26 PM DELINQUENCY COUNSELOR) HLA-B27 Negative 08/01/2016 9:07 PM DELINQUENCY COUNSELOR [facility] ([facility]) Comment: HLA-B*27 Negative HLA allele interpretation for all loci based on IMGT/HLA database version 3.21.0 HLA Lab CLIA ID Number [id number] This test was performed using PCR (Polymerase Chain Reaction)/SSOP (Sequence Specific Oligonucleotide Probes) technique. SBT (Sequence Based Typing) and/or SSP (Sequence Specific Primers) may be used as supplemental methods when necessary. Please contact HLA Customer Service at if you have any questions. Director of HLA Laboratory Dr Stevo Arshad, PhD Blood BLOOD SPECIMEN / Unknown Lab Venipuncture / Unknown 07/27/2016 2:26 PM DELINQUENCY COUNSELOR 07/27/2016 3:08 PM DELINQUENCY COUNSELOR Narrative [facility] ([facility]) - 08/01/2016 9:07 PM DELINQUENCY COUNSELOR Performed at: [address] [place] [id number] Therapy Director: Stevo Arshad PhD, Phone: [phone] Tushar Santacruz MD LAB - CHEMISTRY ROMELIA MARINELLI Performing Organization Address City/[facility]/ZIP Co de Phone Number [facility] ([facility]) [address] [place] [address] * SS-B ANTIBODY (07/27/2016 2:26 PM DELINQUENCY COUNSELOR) Sjogren's Antibodies (SSB) 0.4 0.0 - 0.9 AI 07/28/2016 12:12 PM DELINQUENCY COUNSELOR [facility] ([facility]) Blood BLOOD SPECIMEN / Unknown Lab Venipuncture / Unknown 07/27/2016 2:26 PM DELINQUENCY COUNSELOR 07/27/2016 3:08 PM DELINQUENCY COUNSELOR Narrative [facility] ([facility]) - 07/28/2016 12:12 PM DELINQUENCY COUNSELOR Performed at: [address] [place] [id number] Therapy Director: Talat Rendon PhD, Phone: [phone] Tushar Santacruz MD LAB - CHEMISTRY ROMELIA MARINELLI Performing Organization Address [facility] de Phone Number [facility] ([facility]) [address] [place] [address] * SS-A ANTIBODY (07/27/2016 2:26 PM DELINQUENCY COUNSELOR) Sjogren's Antibodies (SSA) <0.2 0.0 - 0.9 AI 07/28/2016 12:12 PM DELINQUENCY COUNSELOR [facility] ([facility]) Blood BLOOD SPECIMEN / Unknown Lab Venipuncture / Unknown 07/27/2016 2:26 PM DELINQUENCY COUNSELOR 07/27/2016 3:08 PM DELINQUENCY COUNSELOR Narrative [facility] ([facility]) - 07/28/2016 12:12 PM DELINQUENCY COUNSELOR Performed at: [address] [place] [id number] Therapy Director: Talat Rendon PhD, Phone: [phone] Tushar Santacruz MD LAB - CHEMISTRY ROMELIA MARINELLI Performing Organization Address [facility] de Phone Number [facility] ([facility]) [address] [place] [address] * SCL70 ANTIBODY (07/27/2016 2:26 PM DELINQUENCY COUNSELOR) Antiscleroderma -70 Antibody <0.2 0.0 - 0.9 AI 07/28/2016 12:12 PM DELINQUENCY COUNSELOR [facility] ([facility]) Blood BLOOD SPECIMEN / Unknown Lab Venipuncture / Unknown 07/27/2016 2:26 PM DELINQUENCY COUNSELOR 07/27/2016 3:08 PM DELINQUENCY COUNSELOR Narrative [facility] ([facility]) - 07/28/2016 12:12 PM DELINQUENCY COUNSELOR Performed at: [address] [place] [id number] Therapy Director: Talat Rendon PhD, Phone: [phone] Tushar Santacruz MD LAB - CHEMISTRY ROMELIA MARINELLI Performing Organization Address City/[facility] Co de Phone Number [facility] [address] [place] [address] * DNA ANTIBODY DOUBLE STRAND (07/27/2016 2:26 PM DELINQUENCY COUNSELOR) [facility] Anti-dsDNA Quantitative 1 0 - 9 IU/mL 07/28/2016 12:12 PM DELINQUENCY COUNSELOR [facility] ([facility]) Comment: Negative <5 Equivocal 5 - 9 Positive >9 Blood BLOOD SPECIMEN / Unknown Lab Venipuncture / Unknown 07/27/2016 2:26 PM DELINQUENCY COUNSELOR 07/27/2016 3:08 PM DELINQUENCY COUNSELOR Narrative [facility] ([facility]) - 07/28/2016 12:12 PM DELINQUENCY COUNSELOR Performed at: [address] [place] [id number] Therapy Director: Talat Rendon PhD, Phone: [phone] Tushar Santacruz MD LAB - HEMATOLOGY ORD ERABLES Performing Organization Address City/[facility] Co de Phone Number [facility]) [address] [place] [address] * ESR - SED RATE WESTERGREN AUTO (07/27/2016 2:26 PM DELINQUENCY COUNSELOR) Only the most recent of6 resultswithin the time period is included. [facility] Erythrocyte Sedimentation Rate Westergren 5 0 - 12 mm/hr 07/27/2016 5:05 PM DELINQUENCY COUNSELOR [facility] Blood BLOOD SPECIMEN / Unknown Lab Venipuncture / Unknown 07/27/2016 2:26 PM DELINQUENCY COUNSELOR 07/27/2016 3:08 PM DELINQUENCY COUNSELOR Tushar Santacruz MD LAB - HEMATOLOGY ORD ERABLES [facility] [address] [place] [address] * LAB RESULTS ORDER (07/04/2016 5:20 PM DELINQUENCY COUNSELOR) Only the most recent of4 resultswithin the time period is included. Narrative 07/04/2016 5:20 PM DELINQUENCY COUNSELOR Ordered by an unspecified provider. Scanned Document LAB - THERAPEUTIC DR ELVA MONITORING ORDERABLES * MTX POLYGLUTAMATE (07/03/2016 2:25 PM DELINQUENCY COUNSELOR) Only the most recent of2 resultswithin the time period is included. MTX Polyglutamate See Scanned Report 07/11/2016 8:30 AM DELINQUENCY COUNSELOR [facility] Blood BLOOD SPECIMEN / Unknown Lab Venipuncture / Unknown 07/03/2016 2:25 PM DELINQUENCY COUNSELOR 07/03/2016 2:45 PM DELINQUENCY COUNSELOR Anna Edge PA-C LAB - CHEMISTRY ORD ERABLES [facility] [facility] [place] [address] * QUANTIFERON TB-GOLD (04/04/2016 2:33 PM CDT) [facility] QuantiFERON TB Gold NEGATIVE NEGATIVE [facility] Comment: Negative test result. M. tuberculosis complex infection unlikely. NIL 0.01 IU/mL [facility] Mitogen Nil >10.00 IU/mL [facility] TB-Nil 0.00 IU/mL [facility] Comment: The Nil tube value is used to determine if the patient has a preexisting immune response which could cause a false-positive reading on the test. In order for a test to be valid, the Nil tube must have a value of less than or equal to 8.0 IU/mL. The mitogen control tube is used to assure the patient has a healthy immune status and also serves as a control for correct blood handling and incubation. It is used to detect false-negative readings. The mitogen tube must have a gamma interferon value of greater than or equal to 0.5 IU/mL higher than the value of the Nil tube. The TB antigen tube is coated with the M. tuberculosis specific antigens. For a test to be considered positive, the TB antigen tube value minus the Nil tube value must be greater than or equal to 0.35 IU/mL. For additional information, please refer to http://education.[employer]/faq/QFT (This link is being provided for informational/ educational purposes only.) REPORT COMMENT: FASTING:NO Test Performed at: [facility] [address] [facility] [address] YOANA SALAZAR DO,MPH 04/04/2016 2:33 PM CDT 04/04/2016 2:34 PM CDT Yoselin Edwards MD LAB - CHEMISTRY OR DERABLES Performing Organization Address [facility] de Phone Number [facility] [address] [place] [address] * (ABNORMAL) HEPATIC FUNCTION PANEL (03/20/2016 11:10 AM CDT) Protein Total 7.7 6.3 - 8.2 g/dL [facility] Albumin 4.8 3.6 - 5.1 g/dL [facility] Globulin Total 2.9 2.1 - 3.5 g/dL (calc) [facility] Albumin/Globulin Ratio 1.7 1.0 - 2.5 (calc) [facility] Bilirubin Total 1.6(H) 0.2 - 1.1 mg/dL [facility] Bilirubin Direct 0.3(H) < OR = 0.2 mg/dL [facility] Bilirubin Indirect 1.3(H) 0.2 - 1.1 mg/dL (calc) [facility] Alkaline Phosphatase 86 48 - 230 U/L [facility] AST 25 12 - 32 U/L [facility] ALT 35 8 - 46 U/L [facility] Comment: Test Performed at: [facility] [id number] YOANA SALAZAR DO,MPH 03/20/2016 11:1 0 AM CDT 03/20/2016 11:11 AM CDT Yoselin Edwards MD LAB - CHEMISTRY OR DERABLES Performing Organization Address [facility] de Phone Number [facility] [address] [place] [address] * IRON + TIBC PANEL (01/31/2016 2:16 PM CDT) Only the most recent of2 resultswithin the time period is included. Iron 104 27 - 164 mcg/dL [facility] TIBC 307 271 - 448 mcg/dL (calc) [facility] % Saturation 34 9 - 52 % (calc) [facility] Comment: Test Performed at: [facility] [address] [employer] [id number] YOANA SALAZAR DO,MPH 01/31/2016 2:16 PM CDT 01/31/2016 2:18 PM CDT Yoselin Edwards MD LAB - CHEMISTRY OR DERABLES [facility] [address] [place] [address] * IRON + TRANSFERRIN + TIBC PANEL (12/27/2015 4:01 PM CDT) Iron 67 31 - 144 ug/dL 12/27/2015 6:11 PM CDT [facility] Transferrin 215 174 - 364 mg/dL 12/27/2015 6:11 PM CDT [facility] TIBC Calculated 269 250 - 400 mg/dL 12/27/2015 6:11 PM CDT [facility] Iron Saturation % 25 20 - 50 % 12/27/2015 6:11 PM CDT [facility] Blood BLOOD SPECIMEN / Unknown Lab Venipuncture / Unknown 12/27/2015 4:01 PM CDT 12/27/2015 5:19 PM CDT Yoselin Edwards MD LAB - CHEMISTRY OR DERABLES Performing Organization Address [facility] Co de Phone Number [facility] [address] [place] [address] * CULTURE FUNGUS SKIN HAIR NAIL+FUNGUS SMEAR (09/27/2015 4:07 PM DELINQUENCY COUNSELOR) Culture No Fungus Isolated ELSY 10/25/2015 6:13 AM CDT [facility] Fungus Smear No yeast or hyphae seen 10/25/2015 6:13 AM CDT [facility] Microbiology TISSUE SPECIMEN FROM SKIN / Unknown 09/27/2015 4:07 PM DELINQUENCY COUNSELOR 09/27/2015 4:10 PM DELINQUENCY COUNSELOR Yoselin Edwards MD LAB - MICROBIOLOGY ORDERABLES [facility] [address] [place] [address], [facility] [phone] Care Teams Marine Machinist Relationship Specialty Start Date End Date Kevin Ribeiro MD [address] [place] [address] PCP - General Family Medicine 12/03/14
[2024-09-18 14:53] LABS: Influenza A QL RT-PCR Positive (Negative); Influenza B QL RT-PCR Negative (Negative); RSV RNA, RT-PCR Negative (Negative); SARS-CoV-2 RNA PCR Negative (Negative)
== END 2024-09-18 14:04 | disposition home or self-care (01) ==
LOC: ANHLAB 14:04
PROVIDERS: PCP Family Medicine; Visit Provider Family Medicine
DX: R05.9 Cough, unspecified (principal); Z20.822 Contact with and (suspected) exposure to COVID-19
CPT/HCPCS: 87637